=== PATIENT | male | born 1960 | race Caucasian/White ===

== ENCOUNTER → 2017-07-25 | Outpatient (CLI) | payer OTHER | LOC: CIMAGING 09:16 | PROVIDERS: ATTEND Physical Medicine & Rehabilitation | DX: M25.571 Pain in right ankle and joints of right foot (principal); X50.0XXA Overexertion from strenuous movement or load, initial encounter | CPT/HCPCS: 73610-PO ==

== ENCOUNTER → 2018-06-09 | Outpatient (CLI) | payer OTHER ==
[~2018-06-09] MED LIST: LIDOCAINE 1% 300 MG/30 ML SDV ONE
== END ==
LOC: FIMAGING 14:50
PROVIDERS: ATTEND Internal Medicine Critical Care Medicine
PROC: 0W9B3ZX Drainage of Left Pleural Cavity, Percutaneous Approach, Diagnostic (ICD-10-PCS; principal; 2018-06-09)
DX: J90 Pleural effusion, not elsewhere classified (principal)

== ENCOUNTER 2018-07-11 05:52 | Inpatient (IN) | payer OTHER ==
[2018-07-11] MEDS ORDERED: LIDOCAINE 1% 2 ML INJ ID PRN (06:04)
[2018-07-11] MEDS ORDERED: NS 1,000 ML IV ONE (06:04)
[2018-07-11] MEDS ORDERED: MUPIROCIN 2% 22 GM OINT NS ONE (06:04)
[2018-07-11] MEDS ORDERED: ceFAZolin 2 GM/DEXTROSE 100 ML IV ONE (06:04)
[2018-07-11] MEDS ORDERED: LR 1,000 ML IV ONE (06:05)
--- NOTE | 2018-07-11 06:42 | PDANEPAE ---
ANE History of Present Illness pleural effusion ANE Past Medical History - Cardiovascular History Hx Hypertension: Yes Hx Arrhythmias: No Hx Chest Pain: No Hx Coronary Artery / Peripheral Vascular Disease: No Hx CHF / Valvular Disease: No Hx Palpitations: No Cardiovascular History Comment: hyperlipidemia - Pulmonary History Hx COPD: No Hx Asthma/Reactive Airway Disease: No Hx Recent Upper Respiratory Infection: No Hx Oxygen in Use at Home: No Hx Sleep Apnea: Yes Pulmonary History Comment: LANEY. Pleural effusion - Neurologic History Hx Cerebrovascular Accident: No Hx Seizures: No Hx Dementia: No - Endocrine History Hx Diabetes: No Hypothyroid: No Hyperthyroid: No Obesity: no - Renal History Hx Renal Disorders: No - Liver History Hx Hepatic Disorders: No - Neurological & Psychiatric Hx Hx Neurological and Psychiatric Disorders: No - Cancer History Hx Cancer: No - Congenital Disorder History Hx Congenital Disorders: No - GI History GERD: no Hx Gastrointestinal Disorders: No - Other Health History Other Health History: BPH - Chronic Pain History Chronic Pain: No - Surgical History Prior Surgeries: L knee arthroscopy. L humerus. "Flap in lip cut out.". R ankle repair. Thoracentisis x 3 weeks ANE Review of Systems Review of systems is: negative Review of Systems: - Exercise capacity METS (RN): 3 METS ANE Patient History - Allergies Allergies/Adverse Reactions: No Known Allergies Allergy (Unverified 07/10/18 16:17) - Home Medications Home medications: home medication list seen and reviewed Home Medications: Lisinopril 07/11/18 [Last Taken 07/10/18] Multivitamin 07/11/18 [Last Taken 07/10/18] - NPO status NPO Status: no food or drink >8 hours NPO Since - Liquids (Date): 07/11/18 NPO Since - Liquids (Time): 00:00 NPO Since - Solids (Date): 07/10/18 NPO Since - Solids (Time): 19:00 - Anes Hx Anes Hx: no prior problems - Smoking Hx Smoking Status: Never smoked Marijuana use: No - Alcohol Use Alcohol Use: None - Family Anes Hx Family Anes Hx: none Family Hx Anesthesia Complications: none. ANE Labs/Vital Signs - Vital Signs Blood Pressure: 125/76 Heart Rate: 74 Respiratory Rate: 18 O2 Sat (%): 92 Height: 177.8 cm Weight: 91.626 kg ANE Physical Exam - Airway Neck exam: FROM Mallampati Score: Class 2 Mouth exam: normal dental/mouth exam - Pulmonary Pulmonary: no respiratory distress, clear to auscultation - Cardiovascular Cardiovascular: regular rate and rhythym, no murmur, rub, or gallop - ASA Status ASA Status: III ANE Anesthesia Plan Anesthesia Plan: general endotracheal anesthesia
[2018-07-11] MEDS ORDERED: EPINEPHrine 1 MG/ML INJ ONE (06:47)
[2018-07-11] MEDS ORDERED: BUPIVACAINE 0.25% 30 ML SDV ONE ×2 (06:47→09:03)
--- NOTE | 2018-07-11 06:49 | PDGENHP ---
History and Physical - Chief Complaint chronic left pleural effusion - History of Present Illness 57 yo male with a hx of a trauma induced left pleural effusion 5 months ago, and an 800 ml left thoracentesis (lymphocyte predominant exudate) 1 month ago, evaluated in clinic yesterday for a recurrent moderate sized, multiloculated left pleural effusion with atelectasis of the left lower lobe. Associated with generalized fatigue and a "hacking" nonproductive cough with minimal exertion. No identified pericardial effusion, lymphadenopathy, PE, or lung masses. No unexplained wt loss, hemoptysis, F/C, CP, or edema. Suspected to have a non- infective chronic effusion with trapped lung and admitted for an elective LVATS with decortication. History Information - Allergies/Home Medication List Allergies/Adverse Reactions: No Known Allergies Allergy (Unverified 07/10/18 16:17) Home Medications: Lisinopril 07/11/18 [Last Taken 07/10/18] Multivitamin 07/11/18 [Last Taken 07/10/18] I have personally reviewed and updated: medical history, social history, surgical history - Past Medical History hypertension, hyperlipidemia Additional medical history: LANEY, brand new CPAP not yet in use. restrictive lung disease. obesity. BPH - Surgical History Reports: no pertinent surgical hx (orthopedic) - Social History Smoking Status: Never smoked Alcohol Use: None Review of Systems Review of Systems: ROS: 10pt was reviewed & negative except for what was stated in HPI & below Physical Exam Physical Exam: Temp Pulse Resp BP Pulse Ox 37.0 C 74 18 125/76 H 92 07/10/18 17:03 07/11/18 06:42 07/11/18 06:42 07/11/18 06:42 07/11/18 06:42 Constitutional: no apparent distress, appears nourished Eyes: anicteric sclera Ears, Nose, Mouth, Throat: hearing normal Cardiovascular: regular rate and rhythym, no murmur, rub, or gallop Peripheral Pulses: 2+: dorsalis-pedis (R), dorsalis-pedis (L) Respiratory: no respiratory distress, clear to auscultation (right sided), bronchial breath sounds (left sided) Gastrointestinal: soft, non-tender abdomen Genitourinary: no bladder fullness Skin: warm, normal color, no rashes or abrasions Musculoskeletal: other (symmetric tone) Psychiatric: interacting appropriately, not anxious Lab Data & Imaging Review 06/03/18 Spirometry: FEV1 67%, FEV1/FVC 83%; exhaled nitric oxide 62 CXRs: 05/16/18 mod left effusion w atelectasis 05/22/18 no change 06/09/18 800 cc left thoracentesis; GS no org, cx staph epi ? contaminant, cytology abundant lymphocytes but no malignancy 06/26/18 CTA mod multiloculated effusion, no LAD, no PE, no masses EKG Interpretation: Positive for: normal sinsus rhythm Assessment & Plan Assessment: chronic symptomatic left pleural effusion s/p trauma Plan: LVATs drainage +/- decortication of lower lobe Specimen for flow cytometry
[2018-07-11] MEDS ORDERED: fentaNYL 250 MCG/5 ML INJ ONE (06:50)
[2018-07-11] MEDS ORDERED: PROPOFOL/EMULSION 500 MG/50 ML BOTTLE IV ONE (06:50)
[2018-07-11] MEDS ORDERED: ROCURONIUM 50 MG/5 ML VIAL ONE (06:51)
[2018-07-11] MEDS ORDERED: LIDOCAINE 2% 5 ML SDV ONE (06:51)
[2018-07-11] MEDS ORDERED: ePHEDrine SULFATE 25 MG/5 ML SYR ONE ×2 (07:38→08:50)
--- NOTE | 2018-07-11 08:15 | POSTANESTH ---
Post Anesthetic Evaluation Cardiovascular Status: Normal, Stable Respiratory Status: Normal, Stable Level of Consciousness/Mental Status: Can Participate in Eval Pain Control: Adequate, Prn Tx Ordered Nausea/Vomiting Control: Adequate, Prn Tx Ordered Complications Possibly Related to Anesthesia: None Noted
[2018-07-11] MEDS ORDERED: DEXAMETHASONE 4 MG/ML VIAL ONE (08:47)
[2018-07-11] MEDS ORDERED: ONDANSETRON 4 MG/2 ML VIAL ONE (08:47)
[2018-07-11] MEDS ORDERED: PHENYLEPHRINE HCL 100 MCG/ML SYR ONE (08:47)
[2018-07-11] MEDS ORDERED: KETOROLAC 30 MG/1 ML SDV ONE (08:48)
[2018-07-11] MEDS ORDERED: NALOXONE HCL 0.4 MG/ML INJ IVP PRN ×2 (09:05→09:08)
[2018-07-11] MEDS ORDERED: fentaNYL 100 MCG/2 ML INJ IVP PRN (09:08)
[2018-07-11] MEDS ORDERED: HYDROmorphONE/DILAUDID 2 MG/ML INJ IVP PRN (09:08)
[2018-07-11] MEDS ORDERED: PROMETHAZINE HCL 25 MG/ML INJ IVP PRN (09:08)
[2018-07-11] MEDS ORDERED: NEOSTIGMINE METHYLSULFATE 5 MG/5 ML SYR ONE (09:27)
[2018-07-11] MEDS ORDERED: GLYCOPYRROLATE 0.2 MG/1 ML VIAL ONE ×2 (09:27)
[2018-07-11] MEDS ORDERED: fentaNYL 100 MCG/2 ML INJ ONE (09:48)
[2018-07-11] MEDS ORDERED: METOCLOPRAMIDE 10 MG TAB PO PRN (09:57)
[2018-07-11] MEDS ORDERED: ACETAMINOPHEN 325 MG TAB PO PRN (09:57)
[2018-07-11] MEDS ORDERED: METOCLOPRAMIDE 10 MG/2 ML VIAL IVP PRN (09:57)
[2018-07-11] MEDS ORDERED: BISACODYL 10 MG SUPP PR PRN (10:08)
[2018-07-11] MEDS ORDERED: LACTULOSE 20 GM/30 ML UDCUP PO PRN (10:08)
[2018-07-11] MEDS ORDERED: MAGNESIUM HYDROXIDE 30 ML UDCUP PO PRN (10:08)
[2018-07-11] MEDS ORDERED: POLYETHYLENE GLYCOL 3350 17 GM PKT PO PRN (10:08)
--- NOTE | 2018-07-11 10:45 | POSTOPPROG ---
Post Op Note Date of Operation: 07/11/18 Surgeon: Jone Paula Convertible Sofa Bedspring Tester: Juan Anesthesiologist: Margarita Anesthesia: GET(General Endotracheal) Pre-op Diagnosis: trapped lung Post-op Diagnosis: same Procedure: L decortication Inf/Abcess present in the surg proc area at time of surgery?: No Complications: none Drains: Other (2 CTs)
--- NOTE | 2018-07-11 11:42 | PDMN ---
Medical Necessity Medical necessity: Pt meets inpt criteria per MD order and [id number], Thoracotomy with Biopsy or Miscellaneous Procedures by Video-Assisted Thoracic Surgery, A-2 days, IP only list. 57 y/o w/chronic symptomatic L pleural effusion s/p trauma admitted for LVATS w/decortication and post-op care.
[2018-07-11] MEDS: ceFAZolin 2 GM/DEXTROSE 100 ML IV SCH ×2 (14:10→22:05)
[2018-07-11] MEDS: KETOROLAC 30 MG/1 ML SDV IVP SCH ×3 (15:00→23:54)
[2018-07-11] MEDS: OXYCODONE/APAP 5/325 TAB PO PRN ×2 (20:21→22:04)
--- NOTE | 2018-07-11 21:42 | GOP ---
[f rep st] OPERATIVE REPORT DATE OF OPERATION: 07/11/2018 SURGEON: Jone Paula DO PROCESS PROJECT ENGINEER: Rebekah Martinez PA-C ANESTHESIA: Stanley Avila MD. 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 POSTOPERATIVE DIAGNOSIS: Trapped lung secondary to chronic loculated pleural effusion. PROCEDURE PERFORMED: 1. Thoracoscopic evaluation. 2. Conversion to open thoracotomy with decortication. FINDINGS: DESCRIPTION OF PROCEDURE: Patient was consented for surgery; brought to the operating room. Double- lumen endotracheal tube was placed. He was placed in lateral decubitus position. Two portals were p laced anteriorly in the mid chest with entering of the scope. There was a thick peel and dense adhes ion of the lung apically and circumferentially, with a non-expandable pocket posterolaterally. Visua lization was poor and, for that reason, I converted him to a mini thoracotomy with a retractor placed . We then spent a great deal of time decorticating the entire lung, predominantly posteriorly, later ally, and inferiorly. We did free up the whole lung circumferentially. We had good re-expansion of the lung with ventilation. He was copiously irrigated. Blood loss was approximately 100 cc. He did have 800 cc of serosanguineous fluid in there. Tissue was sent for permanent evaluation. No cultur es were obtained. Two chest tubes were placed; 0.25% Marcaine with epinephrine was then used to infi ltrate the intercostal spaces. The ribs were reapproximated. Two additional stainless steel wires w ere used because of his large body habitus to stabilize the closure. Otherwise, the closure was chance dard. He was returned to recovery room in stable condition. /[id number]/MODL
[2018-07-11] MEDS: HEPARIN 5,000 UNIT/0.5 ML INJ SC SCH (22:05)
[2018-07-12] MEDS ORDERED: TEMAZEPAM 15 MG CAP PO ONE (00:30)
[2018-07-12] MEDS: HEPARIN 5,000 UNIT/0.5 ML INJ SC SCH ×3 (05:43→21:34)
[2018-07-12] MEDS: KETOROLAC 30 MG/1 ML SDV IVP SCH ×3 (05:43→18:25)
--- NOTE | 2018-07-12 08:14 | SOAPPROG ---
SOAP Progress Note Assessment/Plan: Assessment: POD#1 LVATS drainage of pleural effusion converted to thoracotomy for decortication Loculated chronic pleural effusion with trapped lung - Intraop findings c/w old traumatic SVETLANA and no cultures sent. Stable early postop course. Small air leak resolved with suction. Satisfactory pain control with multimodal analgesia. Plan: Chest tubes to waterseal. Consider removal ant chest tube later today vs tomorrow. Increase pulmonary toilet and activity. Wean O2. Dispo - Anticipate home without services in 2 days. 07/12/18 08:11 Subjective: Excellent sleep on Restoril. Good appetite. IS worse than yest and admits to being nervous about coughing and pain. Yet to walk much. Objective: Vital Signs Temp Pulse Resp BP Pulse Ox 36.8 C 76 18 99/62 L 94 07/12/18 07:19 07/12/18 07:19 07/12/18 07:19 07/12/18 07:19 07/12/18 07:19 Laboratory Results 07/12/18 03:30 07/12/18 03:30 07/11/18 07/12/18 07/13/18 05:59 05:59 05:59 Intake Total 3880 Output Total 1880 375 Balance 1999 - CXR-> No PTX, left basilar atelectasis Intermittent fever (Tmax 38.6 late last noc), likely atelectasis; VS o/w stable. CTOP dissipating. Physical Exam - Physical Exam General Appearance: alert, no apparent distress Respiratory: lungs clear (rt sided), crackles (left base), other (Left thoracot CDI; chest tubes x 2 y-d to pleurovac, thin serosang drainage, no tidal, no inducible air leak) Cardiac/Chest: regular rate, rhythm Abdomen: non-tender, soft Skin: warm/dry Extremities: other (no visible edema) ICD10 Worksheet Patient Problems: Problems Problem Status Onset S/P thoracotomy Acute ~07/11/18 Trapped lung Acute Chronic pleural effusion Chronic LANEY (obstructive sleep apnea) Chronic
--- NOTE | 2018-07-12 09:39 | ASMTCMCOM ---
CM Note CM Note Notes: Pt is a 57 yo M presents with loculated pleural effusion. No therapies ordered at this time, pt lives with . Pt will likely be discharged independently, CM available if needs arise. Plan: Independent. Date Signed: 07/12/2018 09:39 AM Electronically Signed By:JOSÉ MIGUEL Hoyos
[2018-07-12] MEDS: OXYCODONE/APAP 5/325 TAB PO PRN (10:13)
[2018-07-12] MEDS ORDERED: SENNOSIDES/DOCUSATE SODIUM TAB PO SCH (21:00)
[2018-07-12] MEDS ORDERED: TEMAZEPAM 15 MG CAP PO PRN (21:00)
[2018-07-13] MEDS: KETOROLAC 30 MG/1 ML SDV IVP SCH ×2 (00:02→06:23)
[2018-07-13] MEDS: OXYCODONE/APAP 5/325 TAB PO PRN (04:47)
[2018-07-13] MEDS: HEPARIN 5,000 UNIT/0.5 ML INJ SC SCH (06:24)
--- NOTE | 2018-07-13 08:13 | SOAPPROG ---
SOAP Progress Note Assessment/Plan: Assessment: POD#2 LVATS drainage of pleural effusion converted to thoracotomy for decortication Loculated chronic pleural effusion with trapped lung - Intraop findings c/w old traumatic SVETLANA and no cultures sent. Stable early postop course. Small air leak resolved with suction. Satisfactory pain control with multimodal analgesia. 1 of 2 chest tubes out. Plan: Remove remaining chest tube. Cont aggressive pulmonary toilet and inc activity. Room air trial. Dispo - Anticipate home without services later today. 07/13/18 08:12 Subjective: Feels well. Walking with ease. +BM. Eager to get tube out and go home. Objective: Vital Signs Temp Pulse Resp BP Pulse Ox 36.8 C 80 18 122/70 H 92 07/13/18 04:00 07/13/18 04:00 07/13/18 04:00 07/13/18 04:00 07/13/18 04:00 Laboratory Results 07/12/18 03:30 07/12/18 03:30 07/12/18 07/13/18 07/14/18 05:59 05:59 05:59 Intake Total 3880 940 300 Output Total 1880 2120 275 Balance 1999 -1180 25 CXR -> essentially unchanged Afeb. VSS. Borderline suppl O2 req. CTOP down to 70 ml last shift. Physical Exam - Physical Exam General Appearance: alert, no apparent distress Respiratory: crackles (left base o/w CTA), other (CT to pleurovac, thin serosang drainage, small tidal, no inducible air leak) Cardiac/Chest: regular rate, rhythm, other (Thoracot CDI) Abdomen: non-tender, soft Skin: warm/dry Extremities: other (no visible edema) ICD10 Worksheet Patient Problems: Problems Problem Status Onset S/P thoracotomy Acute ~07/11/18 Trapped lung Acute Chronic pleural effusion Chronic LANEY (obstructive sleep apnea) Chronic
[2018-07-13] MEDS ORDERED: SENNOSIDES/DOCUSATE SODIUM TAB PO PRN (09:00)
[2018-07-13 09:15] VITALS: BP 125/68
[2018-07-13] MEDS ORDERED: guaiFENesin 600 MG TAB.ER PO SCH (11:00)
--- NOTE | 2018-07-13 11:29 | PDDCSUM ---
Discharge Summary Discharge Summary: DATE OF ADMISSION: 07/11/18 DATE OF DISCHARGE: 07/13/18 DISPOSITION: Home, self-care PRINCIPAL ADMISSION DIAGNOSIS: Chronic loculated left pleural effusion PRINCIPAL DISCHARGE DIAGNOSES: 1. Trapped left lung 2. Status post thoracoscopic drainage of effusion with conversion to thoracotomy for decortication of affected left lung HISTORY OF PRESENT ILLNESS: 57 yo male with a hx of traumatic left pleural effusion 5 months ago and an 800 ml left thoracentesis 1 month ago, admitted for elective VATS evaluation and drainage of a recurrent moderate sized, multiloculated effusion with atelectasis of the left lower lobe. PERTINENT PAST MEDICAL HISTORY: LANEY on CPAP, obesity, HTN, hyperlipidemia, BPH MEDICATIONS ON ADMISSION: Lisinopril 10 mg daily, MVI daily, herbal supplement daily, Vit D3 1,000 units daily, Vit C 500 mg daily ALLERGIES/SENSITIVITIES: NKDA CONSULTANTS: none PROCEDURES/IMAGIN/15 (Nisa): Left thoracoscopy with drainage of 1 liter effusion. Conversion to open thoracotomy for decortication of lower lobe and apex. ABBREVIATED HOSPITAL COURSE BY ACTIVE PROBLEM LIST: Loculated chronic pleural effusion with trapped lung - Intraop findings c/w old traumatic SVETLANA and no cultures sent. Stable early postop course. Small air leak resolved with suction. Satisfactory pain control with multimodal analgesia. DISCHARGE CLINICAL INFORMATION: Left thoracotomy CDI, sutured, +Dermabond. HR 70s-80s. SBP 120s. SpO2 90-91% RA. Wt 0.5 kg above admission at 91.6 kilos. Hgb 11.1, HCT 34.4, Plt 369, Na 133, K 4.6, Cr 0.9 DISCHARGE MEDICATIONS: As on admission with the following adjustments: 1. Decrease lisinopril to 5 mg daily until systolic blood pressure consistently > 130. NEW prescriptions: 1. Mucinex 600 mg BID up to 2 weeks 2. Restoril 15 mg HS prn insomnia 3. Percocet 5/325 one tab q 6h prn breakthrough discomfort not controlled by Tylenol or Ibuprofen FOLLOW UP APPOINTMENTS: 1. CV surgery: with Dr Spencer at [facility] on 07/22 at 10:00 am. 2. Pulmonology: with Dr Cunha at [facility] Pulmonology as directed. FOLLOW UP TESTING: CXR prior to surgical appointment.
[2018-07-13] MEDS ORDERED: IBUPROFEN 600 MG TAB PO SCH (12:00)
--- NOTE | 2018-07-13 12:03 | ASDISCHSUM ---
Discharge Information Plan Status:Home with No Needs Medically Cleared to Leave: Discharge Date: D/C Disposition:Home, Routine, Self-Care ADT D/C Disposition:Home, Routine, Self-Care Projected Discharge Date:07/13/2018 12:00 AM Transportation at D/C:Family Discharge Delay Reason: Follow-Up Date:07/13/2018 12:00 AM Discharge Slot: Final Diagnosis: Placement Information Patient Contact Information Contact Name:JENNY Relationship: Address:[address] Work Phone: City:[place] [facility] Phone: State/Zip Code:[place] [address] Email: Financial Information Financial Class:[employer] Primary [facility] Desc[facility] Primary Plan Number:[id number] Secondary Plan Desc: Secondary Plan Number: Assessment Information LACE LACE Length of stay for Answers: 2 days current admission Acuity / Level of Answers: Yes Care: Did the patient have an inpatient admission? Comorbidities - select Answers: Other Notes: HTN; HLD all that apply # of Emergency department Answers: 1-2 visits in the last 6 months Score: 7 Date Signed: 07/13/2018 12:02 PM Electronically Signed By:JOSÉ MIGUEL Hoyos [facility] CM Progress Note CM Note CM Note Notes: Pt is a 57 yo M presents with loculated pleural effusion. No therapies ordered at this time, pt lives with . Pt will likely be discharged independently, CM available if needs arise. Plan: Independent. Date Signed: 07/12/2018 09:39 AM Electronically Signed By:JOSÉ MIGUEL Hoyos Case Management Discharge Plan Note Case Management Discharge Discharge Order Complete? Answers: Yes Transportation Arranged Answers: Family/Friends Discharge Comments Notes: Pt is being discharged independently. Family to transport. No CM needs identified. Date Signed: 07/13/2018 12:02 PM Electronically Signed By:JOSÉ MIGUEL Hoyos Intervention Information
[2018-07-14] MEDS ORDERED: MULTIVITAMINS 1 EACH TAB PO SCH (09:00)
[2018-07-14] MEDS ORDERED: CHOLECALCIFEROL VIT D3 1,000 UNITS TAB PO SCH (09:00)
[2018-07-14] MEDS ORDERED: VITAMIN B COMPLEX 1 EA CAP/TAB PO SCH (09:00)
[2018-07-14] MEDS ORDERED: ASCORBIC ACID 500 MG TAB PO SCH (09:00)
--- NOTE | 2018-07-14 21:56 | CPEKG ---
Test Reason : OPEN Blood Pressure : / mmHG Vent. Rate : 069 BPM Atrial Rate : 068 BPM P-R Int : 125 ms QRS Dur : 101 ms QT Int : 407 ms P-R-T Axes : 058 026 033 degrees QTc Int : 436 ms Sinus rhythm Confirmed by Elbert Gaviria ([id number] on 07/14/2018 9:56:12 PM Referred By: Jone Paula Confirmed By:Elbert Gaviria
== END 2018-07-13 12:45 | disposition home or self-care (01) | DRG 165 ==
LOC: F3N 05:52 → F2W 12:26
PROVIDERS: ADMIT Thoracic Surgery (Cardiothoracic Vascular Surgery); ATTEND Thoracic Surgery (Cardiothoracic Vascular Surgery)
DX: J90 Pleural effusion, not elsewhere classified (principal); J98.4 Other disorders of lung; Z53.32 Thoracoscopic surgical procedure converted to open procedure; G47.33 Obstructive sleep apnea (adult) (pediatric); E66.9 Obesity, unspecified; I10 Essential (primary) hypertension; E78.5 Hyperlipidemia, unspecified; N40.0 Benign prostatic hyperplasia without lower urinary tract symptoms
CPT/HCPCS: J0171; J0690; J1100; J1644; J1885; J2370; J2405; J2704; J2710; J3010

== ENCOUNTER → 2018-07-22 | Outpatient (CLI) | payer OTHER | LOC: FIMAGING 09:24 | PROVIDERS: ATTEND Thoracic Surgery (Cardiothoracic Vascular Surgery) | DX: Z09 Encounter for follow-up examination after completed treatment for conditions other than malignant neoplasm (principal); J98.4 Other disorders of lung ==

== ENCOUNTER → 2018-10-27 | Outpatient (CLI) | payer OTHER | LOC: FIMAGING 07:39 ==

== ENCOUNTER → 2018-11-18 | Outpatient (CLI) | payer OTHER | LOC: FIMAGING 11:43 ==